=== PATIENT | female | born 1960 | race Asian ===

== ENCOUNTER 2021-01-13 16:05 | Emergency (ER) | payer BC, OTHER ==
[~2021-01-13] VITALS: Ht 160 cm; Wt 73.5 kg
[2021-01-13 16:38] VITALS: BP 164/69
[2021-01-13] MEDS ORDERED: ACETAMINOPHEN 500 MG TAB PO ONE (16:45)
[2021-01-13] MEDS ORDERED: ALPRAZolam 0.5 MG TAB PO ONE (16:45)
== END 2021-01-13 18:00 | disposition home or self-care (01) ==
LOC: ER 16:05
DX: S16.1XXA Strain of muscle, fascia and tendon at neck level, initial encounter (principal); S29.011A Strain of muscle and tendon of front wall of thorax, initial encounter; R51.9 Headache, unspecified; V49.59XA Passenger injured in collision with other motor vehicles in traffic accident, initial encounter; Y93.89 Activity, other specified; Y92.488 Other paved roadways as the place of occurrence of the external cause; Y99.8 Other external cause status
CPT/HCPCS: 70450; 71101; 72040